=== PATIENT | male | born 1950 | race Caucasian/White ===

== ENCOUNTER 2021-07-30 01:21 | Day surgery (SDC) | payer MEDICARE, SELFPAY ==
[2021-06-11 14:04] VITALS: BMI 30.9
--- NOTE | 2021-06-30 09:44 | PM.HPGS ---
History of Present Illness History of Present Illness Consent: Risks, benefits, and alternatives have been discussed and questions answered. Patient agrees to proceed with procedure. Chief complaint: neoplasm screening Narrative: Kd Bernard is a 70 year old male Referred for colon cancer screening Review of Systems Review of Systems: All systems reviewed & are unremarkable except as noted in HPI and below PMFSH Past Medical History Medical History BMI 30.0-30.9,adult Chest pain, unspecified Hypothyroidism, unspecified Family History Family History Mother Family history of lung cancer, Onset Age: 58 Patient's mother is Social History Social History Smoking status: Never smoker Alcohol intake: current Drinks per week: 3 Substance use: never Substance use type: does not use Meds Home Medications and Allergies Home Medications Medication Instructions Recorded Confirmed Type etanercept 50 mg/mL (1 mL) 50 mg SUBCUT WEEKLY 06/25/20 06/11/21 History subcutaneous pen injector levothyroxine 125 mcg tablet 125 mcg PO DAILY #90 tablet 06/21/21 Rx Allergies Allergy/AdvReac Type Severity Reaction Status Date / Time No Known Allergies Allergy Verified 06/11/21 14:03 Exam Resp: Auscultation: clear to auscultation bilaterally Cardio: Rate: regular rate Rhythm: regular rhythm GI: GI Palp: Yes Soft to palpation and No Tenderness to palpation present (GI) Assessment and Plan Assessment and plan (1) Screening for colon cancer: Code(s): Z12.11 - Encounter for screening for malignant neoplasm of colon Status: Acute Assessment and Plan: Colonoscopy with possible biopsy or polypectomy or cautery or injection of substances.
--- NOTE | 2021-07-22 14:09 | PC.NURSE ---
Called patient to review PAT information for upcoming colonoscopy. Original PAT phone call was completed on 06/11/2021. Reviewed and updated current medications, allergies, pharmacy, and immunizations with patient. Reviewed bowel prep instructions also. Gave updated date of procedure and arrival time with instructions to call waiting room materials handling equipment operator before entering hospital building. Ban Rose RN 07/22/21 [id number]
--- NOTE | 2021-07-29 11:56 | PM.HPGS ---
History of Present Illness History of Present Illness Consent: Risks, benefits, and alternatives have been discussed and questions answered. Patient agrees to proceed with procedure. Chief complaint: neoplasm screening Narrative: Kd Bernard is a 70 year old male referred for colon cancer screening. Review of Systems Review of Systems: All systems reviewed & are unremarkable except as noted in HPI and below PMFSH Past Medical History Medical History BMI 30.0-30.9,adult Chest pain, unspecified Hypothyroidism, unspecified Family History Family History Mother Family history of lung cancer, Onset Age: 58 Patient's mother is Social History Social History Smoking status: Never smoker Alcohol intake: current Drinks per week: 3 Substance use: never Substance use type: does not use Meds Home Medications and Allergies Home Medications Medication Instructions Recorded Confirmed Type etanercept 50 mg/mL (1 mL) 50 mg SUBCUT WEEKLY 06/25/20 07/30/21 History subcutaneous pen injector levothyroxine 125 mcg tablet 125 mcg PO DAILY #90 tablet 06/21/21 07/30/21 Rx Allergies Allergy/AdvReac Type Severity Reaction Status Date / Time No Known Allergies Allergy Verified 07/30/21 06:15 Exam Resp: Auscultation: clear to auscultation bilaterally Cardio: Rate: regular rate Rhythm: regular rhythm GI: GI Palp: Yes Soft to palpation and No Tenderness to palpation present (GI) Assessment and Plan Assessment and plan (1) Screening for colon cancer: Code(s): Z12.11 - Encounter for screening for malignant neoplasm of colon Status: Acute Assessment and Plan: Colonoscopy with possible biopsy or polypectomy or cautery or injection of substances.
[2021-07-30 06:16] VITALS: BP 135/86; PULSE 77; RESP 17; TEMP 35.5; O2SAT 100; BMI 29.3
[2021-07-30] MEDS: LACTATED RINGERS 1,000 ML 150 ML IV CONT (06:19)
--- NOTE | 2021-07-30 07:15 | P.PNAN_ITS ---
Anes - Initial Pre Proc Eval Procedure: Operation Date: 07/30/21 07:30 Proposed Procedures p Screening Colonoscopy - Jean Salcido MD Date/Time: 07/30/21 07:15 Surgeon: Jean Salcido MD Pre Op Diagnosis: neoplasm screening Patient Data Age: 70 Gender: M Height: 1.78 m Weight: 92.9 kg Last Vital Signs Temp 96 F L 07/30/21 06:16 Pulse 77 07/30/21 06:16 Resp 17 07/30/21 06:16 BP 135/86 07/30/21 06:16 Pulse Ox 100 07/30/21 06:16 Allergies Allergy/AdvReac Type Severity Reaction Status Date / Time No Known Allergies Allergy Verified 07/30/21 06:15 Home Medications Medication Instructions Recorded Confirmed Type etanercept 50 mg/mL (1 mL) 50 mg SUBCUT WEEKLY 06/25/20 07/30/21 History subcutaneous pen injector levothyroxine 125 mcg tablet 125 mcg PO DAILY #90 tablet 06/21/21 07/30/21 Rx Patient hx anesthesia problems: none Family hx anesthesia problems: none Results Review: All pre-operative results and documents have been reviewed as part of the pre-operative evaluation. [facility] Past Medical History Medical History BMI 30.0-30.9,adult Chest pain, unspecified Hypothyroidism, unspecified Family History Family History Mother Family history of lung cancer, Onset Age: 58 Patient's mother is Social History Social History Smoking status: Never smoker Alcohol intake: current Drinks per week: 3 Substance use: never Substance use type: does not use Anes - Eval Final PreProcedure Day of Procedure 07/30/21 07:15 Patient weight: overweight Heart: regular rate and rhythm Lungs: clear to auscultation Airway: Mallampati scale class II Neurological: alert and oriented Last oral intake: >/= 8 hours ASA classification: II Emergent: no Anesthetic plan: proceed Anesthesia type and monitoring: general GIVS and standard monitoring Results Review: All pre-operative results and documents have been reviewed as part of the pre-operative evaluation. Informed Consent: The patient's anesthetic plan and its attendant risks and benefits were discussed with the patient/family/POA. Questions were solicited and answers provided to the satisfaction of the patient/family/POA.
[2021-07-30 07:49] VITALS: BP 132/91; PULSE 65; RESP 19; O2SAT 97
[2021-07-30 07:59] VITALS: BP 123/86; PULSE 66; RESP 16; O2SAT 98
[2021-07-30 08:09] VITALS: BP 115/89; PULSE 74; RESP 17; O2SAT 100
== END 2021-07-30 08:18 | disposition home or self-care (01) ==
PROVIDERS: PCP Family Medicine; Visit Provider Internal Medicine Gastroenterology
PROC: 0DJD8ZZ Inspection of Lower Intestinal Tract, Via Natural or Artificial Opening Endoscopic (ICD-10-PCS; CPT 45378; principal; 2021-07-30 07:30)
DX: Z12.11 Encounter for screening for malignant neoplasm of colon (principal); K57.30 Diverticulosis of large intestine without perforation or abscess without bleeding; E03.9 Hypothyroidism, unspecified
CPT/HCPCS: G0121; J2704; J7120